=== PATIENT | female | born 1950 | race Caucasian/White ===

== ENCOUNTER → 2018-04-30 | Outpatient (CLI) | payer BC, MEDICARE, OTHER ==
[~2018-04-30] MED LIST: ? HTN MED; AMLO5 PO; GLIM4 PO; HYDCHL25 PO; METF500; METF500 PO; METO50; METO50ER PO; MULVITMINF PO; ONDA4ODT MM; SUMA25 PO; [UNRECOGNIZED DRUG - REMARK] PO
== END | disposition home or self-care (01) ==
LOC: LAB SHORT 17:44 → LAB 17:44
DX: E11.9 Type 2 diabetes mellitus without complications (principal); E78.5 Hyperlipidemia, unspecified; I10 Essential (primary) hypertension
CPT/HCPCS: 82043; 83036

== ENCOUNTER → 2019-08-19 | Outpatient (CLI) | payer MEDICARE, OTHER ==
[2019-08-19 14:19] LABS: CHOL/HDL RATIO 4.6; Cholesterol 167 mg/dL (50-200); HDL Cholesterol 36 mg/dL (>39); LDL/HDL RATIO 2.7; Low Density Lipoprotein Chol 99 mg/dL (0-110); Triglycerides 161 mg/dL (30-160); Very Low Density Lipoprot Chol 32 mg/dL (6-32)
== END | disposition home or self-care (01) ==
LOC: LAB 10:01 → LAB SHORT 10:01
PROVIDERS: Hospitalist
DX: E11.40 Type 2 diabetes mellitus with diabetic neuropathy, unspecified (principal)
CPT/HCPCS: 80061; 82043; 83036

== ENCOUNTER → 2020-11-10 | Outpatient (CLI) | payer MEDICARE, OTHER ==
[~2020-11-10] MED LIST changes: +Acetaminophen325 M1 PO; +IBUP400 PO; +INSULANPEN SC; +LISI5 PO; +LOSA25 PO; +SULTRIDS PO; +THERA-D2000 UNIT PO
== END | disposition home or self-care (01) ==
LOC: LAB SHORT 09:57
DX: L03.116 Cellulitis of left lower limb (principal)
CPT/HCPCS: 87070; 87075; 87205

== ENCOUNTER 2020-11-12 10:52 | Emergency (ER) | payer OTHER, MEDICARE ==
[~2020-11-12] VITALS: Ht 157.5 cm; Wt 80.7 kg
[~2020-11-12 10:52] MED LIST changes: -Acetaminophen325 M1 PO; -IBUP400 PO; -INSULANPEN SC; -LISI5 PO; -LOSA25 PO; -SULTRIDS PO; -THERA-D2000 UNIT PO
[2020-11-12 11:53] LABS: BASOPHILS ABSOLUTE AUTO 0.07 K/mm3 (0.00-0.23); BASOPHILS PERCENT AUTO 1 % (0-2); EOSINOPHILS PERCENT AUTO 2 % (0-6); Hematocrit 38.4 % (33.0-51.0); Hemoglobin 12.6 g/dL (11.5-16.0); IMMATURE GRAN ABSOLUTE AUTO 0.04 K/mm3 (0.00-0.10); IMMATURE GRAN PERCENT AUTO 1 % (0-1); LYMPHOCYTES ABSOLUTE AUTO 4.46 K/mm3 (0.84-5.20); LYMPHOCYTES PERCENT AUTO 53 % (21-46); MONOCYTES ABSOLUTE AUTO 0.44 K/mm3 (0.16-1.47); MONOCYTES PERCENT AUTO 5 % (4-13); Mean Corpuscular HGB 27.6 pg (26.0-34.0); Mean Corpuscular HGB Conc 32.8 g/dL (31.5-36.5); Mean Corpuscular Volume 84 fL (80-100); Mean Platelet Volume 9.1 fL (9.1-12.4); NEUTROPHILS ABSOLUTE AUTO 3.28 K/mm3 (1.96-9.15); NEUTROPHILS PERCENT AUTO 39 % (41-73); Platelet Count 266 K/mm3 (150-400); RDW Coefficient Variation 12.6 % (11.7-14.2); RDW Standard Deviation 38.2 fL (35.1-46.3); Red Blood Cell Count 4.57 M/mm3 (3.80-5.20); White Blood Cell Count 8.49 K/mm3 (4.00-11.30)
[2020-11-12 12:05] LABS: Alanine Aminotransfer (ALT/SGP 27 U/L (12-78); Albumin, Blood 3.4 g/dL (3.4-5.0); Albumin/Globulin Ratio 0.8 (0.8-1.8); Alk Phos 94 U/L (50-136); Anion Gap 9 mmol/L (6-16); Aspartate Aminotrans (AST/SGOT 18 U/L (12-37); Bilirubin, Total 0.3 mg/dL (0.1-1.0); Blood Urea Nitrogen 9 mg/dL (8-24); Bun/Creatinine Ratio 15.1 (12.0-20.0); CO2, Blood 21 mmol/L (21-32); Calcium, Blood 9.4 mg/dL (8.5-10.1); Chloride, Blood 104 mmol/L (98-108); Glomerular Filtration Rate >60 (60-); Glucose, Blood 248 mg/dL (70-99); Sodium, Blood 134 mmol/L (136-145); Total Protein, Blood 7.4 g/dL (6.4-8.2)
== END 2020-11-12 14:45 | disposition home or self-care (01) ==
LOC: ER 10:52
PROVIDERS: Emergency Medicine
DX: E11.628 Type 2 diabetes mellitus with other skin complications (principal); L02.612 Cutaneous abscess of left foot; E11.65 Type 2 diabetes mellitus with hyperglycemia; I10 Essential (primary) hypertension; Z79.84 Long term (current) use of oral hypoglycemic drugs
CPT/HCPCS: 73630; 76882; 80053; 85025; 85651; 86140; 96365; 96366; 99284-25; J3370

== ENCOUNTER → 2020-11-13 | Outpatient (CLI) | payer MEDICARE, OTHER ==
[~2020-11-13] MED LIST changes: +Acetaminophen325 M1 PO; +IBUP400 PO; +INSULANPEN SC; +LISI5 PO; +LOSA25 PO; +SULTRIDS PO; +THERA-D2000 UNIT PO
== END | disposition home or self-care (01) ==
LOC: LAB SHORT 14:25
DX: E11.621 Type 2 diabetes mellitus with foot ulcer (principal); L03.116 Cellulitis of left lower limb; L02.612 Cutaneous abscess of left foot; L97.509 Non-pressure chronic ulcer of other part of unspecified foot with unspecified severity
CPT/HCPCS: 87071; 87075; 87205

== ENCOUNTER 2021-01-04 18:16 | Inpatient (IN) | payer MEDICARE, OTHER ==
[~2021-01-04] VITALS: Ht 157.5 cm; Wt 79.8 kg
[~2021-01-04 18:16] MED LIST changes: -Acetaminophen325 M1 PO; -IBUP400 PO; -INSULANPEN SC; -LISI5 PO; -LOSA25 PO; -SULTRIDS PO; -THERA-D2000 UNIT PO
[2021-01-04 19:13] LABS: Hematocrit 40.8 % (33.0-51.0); Hemoglobin 13.7 g/dL (11.5-16.0); Mean Corpuscular HGB 27.9 pg (26.0-34.0); Mean Corpuscular HGB Conc 33.6 g/dL (31.5-36.5); Mean Corpuscular Volume 83 fL (80-100); Platelet Count 289 K/mm3 (150-400); RDW Coefficient Variation 12.9 % (11.7-14.2); RDW Standard Deviation 39.2 fL (35.1-46.3); Red Blood Cell Count 4.91 M/mm3 (3.80-5.20); White Blood Cell Count 9.81 K/mm3 (4.00-11.30)
[2021-01-04 19:33] LABS: Alanine Aminotransfer (ALT/SGP 25 U/L (12-78); Albumin/Globulin Ratio 0.9 (0.8-1.8); Alk Phos 122 U/L (50-136); Anion Gap 7 mmol/L (6-16); Aspartate Aminotrans (AST/SGOT 10 U/L (12-37); Bilirubin, Total 0.5 mg/dL (0.1-1.0); Blood Urea Nitrogen 13 mg/dL (8-24); Bun/Creatinine Ratio 21.9 (12.0-20.0); CO2, Blood 25 mmol/L (21-32); Calcium, Blood 10.1 mg/dL (8.5-10.1); Chloride, Blood 105 mmol/L (98-108); Creatinine, Blood 0.59 mg/dL (0.40-1.00); Globulin, Blood 4.3 g/dL (2.2-4.0); Glomerular Filtration Rate >60 (60-); Glucose, Blood 245 mg/dL (70-99); Potassium, Blood 3.9 mmol/L (3.5-5.5); Sodium, Blood 137 mmol/L (136-145); Total Protein, Blood 8.3 g/dL (6.4-8.2)
[2021-01-04 19:52] LABS: Influenza A, PCR NEGATIVE (NEGATIVE); Influenza B, PCR NEGATIVE (NEGATIVE); Resp Syncytial Virus, PCR NEGATIVE (NEGATIVE); SARS-Cov-2 (COVID-19) PCR, MMC NEGATIVE (NEGATIVE)
[2021-01-04 20:05] LABS: Source, Urine Clean Catch
[2021-01-04 20:23] LABS: Appearance, Urine Clear (Clear); Bilirubin, Urine Neg (Neg); Blood, Urine Neg (Neg); Color, Urine Yellow (P-Yellow); Glucose Qualitative, Urine 2+ (Neg); Ketones, Urine 2+ (Neg); Leukocyte Esterase, Urine 2+ (Neg); Nitrite, Urine Neg (Neg); Protein, Urine 1+ (Neg); Urobilinogen, Urine NORM (Normal)
[2021-01-04 20:34] LABS: Bacteria Few /hpf; Red Blood Cells, Urine 0-2 /hpf (0-2); Squamous Epithelial Cells Few /hpf (Few)
[2021-01-04 20:44] LABS: BASOPHILS PERCENT MAN 0 % (0-2); EOSINOPHILS ABSOLUTE MAN 0.19 K/mm3 (0.00-0.68); EOSINOPHILS PERCENT MAN 2 % (0-6); LYMPHOCYTES % ATYPICAL MANUAL 1 % (0-0); LYMPHOCYTES PERCENT MAN 49 % (21-46); MONOCYTES ABSOLUTE MAN 0.39 K/mm3 (0.16-1.47); MONOCYTES PERCENT MAN 4 % (4-13); NEUTROPHILS ABSOLUTE MAN 4.31 K/mm3 (1.96-9.15); SEG NEUTROPHILS PERCENT MAN 44 % (41-73); TOTAL CELLS COUNTED 100
[2021-01-04] MEDS ORDERED: SUMA25 PO (21:37)
[2021-01-04] MEDS ORDERED: LISI5 PO (21:39)
[2021-01-04] MEDS ORDERED: LOSA25 PO (23:00)
[2021-01-04] MEDS ORDERED: THERA-D2000 UNIT PO (23:01)
[2021-01-04] MEDS ORDERED: IBUP400 PO (23:01)
[2021-01-04] MEDS ORDERED: AMLO5 PO (23:03)
--- NOTE | 2021-01-05 00:01 | NUR ---
PT ARRIVED TO ROOM FROM ER. PT A/O, VSS. LEFT BALL OF FOOT OPEN, W/MOD AMT PURULANT TALAT HOUSER. PT REP PAIN AROUND WOUND AND UP INTO TOE. PT DENIES N/T, CAP REFILL WNL. PT REP SHE HAS HAD A WOUND VAC IN PLACE SINCE 11/12 AND HAS BEEN GOING TO THE WOUND CLINIC FOR DRESSING CHANGES. PT REP DR VERMA REFERRED HER TO HOSPITAL FOR PLAN FOR AMPUTATION OF LEFT GREAT TOE. PT REP PAIN FLORY AT REST. WOUND CLEANSED, PICS TAKEN AND PLACED IN CHART. WOUND DRESSED W/NON ADHEARANT DRESSING AND WRAPPED LOOSELY W/KERLEX. PT ORIENTED TO ROOM/CALL LIGHT/NPO STATUS. WILL MONITOR AND TX PER ORDERS.
[2021-01-05 05:30] LABS: BASOPHILS ABSOLUTE AUTO 0.06 K/mm3 (0.00-0.23); BASOPHILS PERCENT AUTO 1 % (0-2); EOSINOPHILS ABSOLUTE AUTO 0.26 K/mm3 (0.00-0.68); EOSINOPHILS PERCENT AUTO 3 % (0-6); Hemoglobin 11.7 g/dL (11.5-16.0); IMMATURE GRAN ABSOLUTE AUTO 0.03 K/mm3 (0.00-0.10); IMMATURE GRAN PERCENT AUTO 0 % (0-1); LYMPHOCYTES ABSOLUTE AUTO 4.54 K/mm3 (0.84-5.20); LYMPHOCYTES PERCENT AUTO 55 % (21-46); MONOCYTES ABSOLUTE AUTO 0.41 K/mm3 (0.16-1.47); MONOCYTES PERCENT AUTO 5 % (4-13); Mean Corpuscular HGB 27.6 pg (26.0-34.0); Mean Corpuscular HGB Conc 33.4 g/dL (31.5-36.5); Mean Corpuscular Volume 83 fL (80-100); Mean Platelet Volume 9.1 fL (9.1-12.4); NEUTROPHILS ABSOLUTE AUTO 2.94 K/mm3 (1.96-9.15); NEUTROPHILS PERCENT AUTO 36 % (41-73); Platelet Count 245 K/mm3 (150-400); RDW Coefficient Variation 12.8 % (11.7-14.2); RDW Standard Deviation 38.8 fL (35.1-46.3); Red Blood Cell Count 4.24 M/mm3 (3.80-5.20); White Blood Cell Count 8.24 K/mm3 (4.00-11.30)
[2021-01-05 06:18] LABS: Alanine Aminotransfer (ALT/SGP 20 U/L (12-78); Albumin, Blood 3.2 g/dL (3.4-5.0); Albumin/Globulin Ratio 0.8 (0.8-1.8); Alk Phos 97 U/L (50-136); Anion Gap 6 mmol/L (6-16); Aspartate Aminotrans (AST/SGOT 10 U/L (12-37); Bilirubin, Total 0.5 mg/dL (0.1-1.0); Blood Urea Nitrogen 10 mg/dL (8-24); Bun/Creatinine Ratio 16.9 (12.0-20.0); CO2, Blood 26 mmol/L (21-32); Calcium, Blood 9.3 mg/dL (8.5-10.1); Chloride, Blood 108 mmol/L (98-108); Creatinine, Blood 0.59 mg/dL (0.40-1.00); Globulin, Blood 3.8 g/dL (2.2-4.0); Glomerular Filtration Rate >60 (60-); Glucose, Blood 201 mg/dL (70-99); Potassium, Blood 3.5 mmol/L (3.5-5.5); Sodium, Blood 140 mmol/L (136-145)
--- NOTE | 2021-01-05 06:38 | NUR ---
PT NEW ADMIT FOR OSTEOMYELITIS OF LEFT FOOT. PT VSS SINCE ARRIVING TO FLOOR. PT DENIED PAIN. DRESSING TO LEFT FOOT INTACT, FOOT ELEVATED IN BED DURING NIGHT. PT NPO POST MIDNIGHT FOR POSSIBLE SURGERY TODAY. PT UP OOB W/FWW+SBA, FLORY WELL.
--- NOTE | 2021-01-05 09:25 | NUR ---
BROUGHT TO [facility] WITH RN. VSS ADMISSION STARTED AT THIS TIME. DRESSING ON LEFT FOOT
--- NOTE | 2021-01-05 09:45 | NUR ---
REPORT GIVEN TO GABY LAZO RN
--- NOTE | 2021-01-05 09:53 | NUR ---
assumed care and received report from vinay olivas rn. pt alert and oriented.
--- NOTE | 2021-01-05 12:27 | NUR ---
TYLENOL PATIENT C/O HEADACHE POST AMPUTATION OF L GREAT TOE. RECEIVED T.O. FROM DR. CHEN FOR TYLENOL. ORDER UPDATED.
--- NOTE | 2021-01-05 16:20 | NUR ---
Shift Summary A/Ox4, pleasant and cooperative with care. Patient had L great toe amputated this morning. Tolerated well. Patient received local anesthetics and propofol for sedation according to report received from [facility] RN. Up to bathroom x SBA, tolerating weight bearing to L leg. Affected extremity elevated above hip level, CMS intact. Dion wrap C/D/I. Patient is apprehensive about starting insulin, needs encouragement. Tolerated morning dose of lantus well stating "That wasn't so bad." No acute concerns. Britt CAPPS assuming care, report given.
--- NOTE | 2021-01-05 16:38 | NUR ---
REPORT RECEIVED FROM GÉNESIS QUINTANA. ASSUMED PT CARE AT THIS TIME
--- NOTE | 2021-01-05 19:47 | NUR ---
NO CHANGE SINCE RECEIVED REPORT, PT SITTING QUIETLY IN ROOM. SURGICAL SITE WNL, VSS. TYLENOL GIVEN PER EMAR FOR PAIN. REPORT PASSED TO GÉNESIS LOPEZ
--- NOTE | 2021-01-06 03:58 | NUR ---
SHIFT SUMMARY PT IS A/O X4, IND IN ROOM. S/P L GREAT TOE AMPUTATION WITH GAUZE AND ARIANE ON L FOOT. LEFT LEG ELEVATED ON PILLOWS OVERNIGHT. PT DECLINING ICE PACK. TAKING TYLENOL FOR PAIN; OFFERED FENTANYL PT REPORTING INCREASED PAIN, HOWEVER PT DECLINING FENTANYL SO FAR THIS SHIFT. PT IS TOLERATING PO INTAKE AND VOIDING. REPORTS BM 01/05. PT RESTING IN BED AT THIS TIME, CALL LIGHT IN REACH.
[2021-01-06] MEDS ORDERED: Acetaminophen325 M1 PO (13:56)
[2021-01-06] MEDS ORDERED: INSULANPEN SC (13:58)
[2021-01-06] MEDS ORDERED: SULTRIDS PO (13:59)
--- NOTE | 2021-01-06 15:57 | NUR ---
DISCHARGE SUMMARY PT A&OX4, VSS, LEFT FLOOR VIA WC WITH ALL PERSONAL POSSESSIONS TO GO HOME WITH DAUGHTER, WITH DC INSTRUCTIONS, SCRIPTS FAXED TO [facility]. DC INSTRUCTIONS PROVIDED, PT AND DAUGHTER REP UNDERSTANDING THOSE INSTRUCTIONS INCLUDING DR VERMA OFFICE WILL CALL PT TO SCHEDULE APPT FIRST OF WEEK AND LEAVE DRESSING IN PLACE UNTIL DR VERMA CHANGES IT AT APPT, WHEN TO CALL THE SURGEON; CALL PCP TO SCHEDULE APPT FOR NEXT WEEK. IV DC'D.
== END 2021-01-06 14:52 | disposition home or self-care (01) | DRG 617 ==
LOC: ER 18:16 → SURS 22:38 → ER 22:38 → SURS 22:42
PROVIDERS: Physician Assistant; Podiatrist; ADMIT Internal Medicine
PROC: 0Y6N0Z9 Detachment at Left Foot, Partial 1st Ray, Open Approach (ICD-10-PCS; principal; 2021-01-05 10:00)
DX: E11.69 Type 2 diabetes mellitus with other specified complication (principal); M86.172 Other acute osteomyelitis, left ankle and foot; L97.524 Non-pressure chronic ulcer of other part of left foot with necrosis of bone; E11.621 Type 2 diabetes mellitus with foot ulcer; Z20.822 Contact with and (suspected) exposure to COVID-19; Z79.84 Long term (current) use of oral hypoglycemic drugs; I10 Essential (primary) hypertension; R51.9 Headache, unspecified
CPT/HCPCS: 0241U; 36415; 80053; 81001; 82947; 83036; 85025; 85651; 87071; 87075; 87086; 87205; 88305; 88311; 93005; 93010; 99284; A9270; G0378; J0690; J1650; J2704; J3370; J7030; J7050; J7120

== ENCOUNTER → 2022-04-29 | Outpatient (CLI) | payer MEDICARE, OTHER ==
[~2022-04-29] MED LIST changes: +Acetaminophen325 M1 PO; +IBUP400 PO; +INSULANPEN SC; +LISI5 PO; +LOSA25 PO; +SULTRIDS PO; +THERA-D2000 UNIT PO
[2022-04-29 15:03] LABS: CHOL/HDL RATIO 4.8; Cholesterol 178 mg/dL (50-200); HDL Cholesterol 37 mg/dL (>39); LDL/HDL RATIO 2.8; Low Density Lipoprotein Chol 103 mg/dL (0-110); Triglycerides 191 mg/dL (30-160); Very Low Density Lipoprot Chol 38 mg/dL (6-32)
== END | disposition home or self-care (01) ==
LOC: LAB 13:40 → LAB SHORT 13:40
PROVIDERS: Hospitalist
DX: E78.5 Hyperlipidemia, unspecified (principal); E11.65 Type 2 diabetes mellitus with hyperglycemia
CPT/HCPCS: 80061; 82043; 83036

== ENCOUNTER → 2022-05-02 | Outpatient (CLI) | payer MEDICARE, OTHER | END | disposition home or self-care (01) | LOC: PLD 13:41 → LAB SHORT 13:41 | DX: L82.1 Other seborrheic keratosis (principal) | CPT/HCPCS: 88305 ==

== ENCOUNTER → 2022-10-02 | Outpatient (CLI) | payer MEDICARE, OTHER ==
[2022-10-02 18:35] LABS: Hematocrit 40.3 % (33.0-51.0); Hemoglobin 13.9 g/dL (11.5-16.0); Mean Corpuscular HGB 28.7 pg (26.0-34.0); Mean Corpuscular HGB Conc 34.5 g/dL (31.5-36.5); Mean Corpuscular Volume 83 fL (80-100); Mean Platelet Volume 9.6 fL (9.1-12.4); Platelet Count 275 K/mm3 (150-400); RDW Coefficient Variation 12.9 % (11.7-14.2); RDW Standard Deviation 38.7 fL (35.1-46.3); Red Blood Cell Count 4.85 M/mm3 (3.80-5.20); White Blood Cell Count 10.32 K/mm3 (4.00-11.30)
[2022-10-02 19:00] LABS: Albumin, Blood 3.9 g/dL (3.4-5.0); Albumin/Globulin Ratio 1.1 (0.8-1.8); Bilirubin, Total 0.4 mg/dL (0.1-1.0); Bun/Creatinine Ratio 23.1 (12.0-20.0); Calcium, Blood 9.7 mg/dL (8.5-10.1); Creatinine, Blood 0.52 mg/dL (0.40-1.00); Globulin, Blood 3.4 g/dL (2.2-4.0); Potassium, Blood 4.1 mmol/L (3.5-5.5); Thyroid Stimulating Hormone 2.4 uIU/mL (0.360-4.800); Total Protein, Blood 7.3 g/dL (6.4-8.2)
[2022-10-02 19:45] LABS: BASOPHILS PERCENT MAN 0 % (0-2); EOSINOPHILS PERCENT MAN 0 % (0-6); LYMPHOCYTES % ATYPICAL MANUAL 6 % (0-0); LYMPHOCYTES PERCENT MAN 57 % (21-46); MONOCYTES PERCENT MAN 2 % (4-13); NEUTROPHILS ABSOLUTE MAN 3.61 K/mm3 (1.96-9.15); SEG NEUTROPHILS PERCENT MAN 35 % (41-73); TOTAL CELLS COUNTED 100
== END | disposition home or self-care (01) ==
LOC: LAB 14:00 → LAB SHORT 14:00
PROVIDERS: Hospitalist
DX: R53.83 Other fatigue (principal)
CPT/HCPCS: 80053; 84443; 85025

== ENCOUNTER 2023-04-14 16:49 | Emergency (ER) | payer MEDICARE, OTHER ==
[~2023-04-14] VITALS: Ht 157.5 cm; Wt 90.7 kg
[2023-04-14 18:27] LABS: Hematocrit 40.5 % (33.0-51.0); Hemoglobin 13.6 g/dL (11.5-16.0); Mean Corpuscular HGB Conc 33.6 g/dL (31.5-36.5); Mean Corpuscular Volume 83 fL (80-100); Mean Platelet Volume 9.7 fL (9.1-12.4); Platelet Count 211 K/mm3 (150-400); RDW Coefficient Variation 13.2 % (11.7-14.2); RDW Standard Deviation 39.6 fL (35.1-46.3); Red Blood Cell Count 4.86 M/mm3 (3.80-5.20)
[2023-04-14 18:57] LABS: Albumin, Blood 3.7 g/dL (3.4-5.0); Albumin/Globulin Ratio 0.9 (0.8-1.8); Bilirubin, Total 0.3 mg/dL (0.1-1.0); Bun/Creatinine Ratio 24.3 (12.0-20.0); Calcium, Blood 9.1 mg/dL (8.5-10.1); Creatinine, Blood 0.58 mg/dL (0.40-1.00); Globulin, Blood 4.1 g/dL (2.2-4.0); Potassium, Blood 3.8 mmol/L (3.5-5.5); Total Protein, Blood 7.8 g/dL (6.4-8.2)
[2023-04-14 19:26] LABS: BASOPHILS PERCENT MAN 0 % (0-2); EOSINOPHILS PERCENT MAN 1 % (0-6); LYMPHOCYTES ABSOLUTE MAN 7.42 K/mm3 (0.84-5.20); LYMPHOCYTES PERCENT MAN 70 % (21-46); METAMYELOCYTE PERCENT MAN 1 % (0-0); MONOCYTES ABSOLUTE MAN 0.21 K/mm3 (0.16-1.47); MONOCYTES PERCENT MAN 2 % (4-13); NEUTROPHILS ABSOLUTE MAN 2.75 K/mm3 (1.96-9.15); SEG NEUTROPHILS PERCENT MAN 26 % (41-73); TOTAL CELLS COUNTED 100
[2023-04-14 20:38] VITALS: BP 143/81
== END 2023-04-14 20:37 | disposition home or self-care (01) ==
LOC: ER 16:49
PROVIDERS: Student in an Organized Health Care Education/Training Program
DX: R07.9 Chest pain, unspecified (principal); Z79.899 Other long term (current) drug therapy; Z79.4 Long term (current) use of insulin; E11.9 Type 2 diabetes mellitus without complications; I10 Essential (primary) hypertension
CPT/HCPCS: 71046; 80053; 84484; 85025; 93005; 93010; 99285-25

== ENCOUNTER → 2023-07-15 | Outpatient (CLI) | payer MEDICARE, OTHER ==
[2023-07-15 19:32] LABS: Creatinine, Urine Random 89.4 mg/dL (27.00-270.00)
[2023-07-15 19:34] LABS: Microalb/Creat Ratio UR, Rand 10.336 mg/g (0.000-30.000); Microalbumin, Random Urine 9.24 mg/L (0.000-20.000)
[2023-07-15 19:45] LABS: Bun/Creatinine Ratio 18.6 (12.0-20.0); Calcium, Blood 9.7 mg/dL (8.5-10.1); Creatinine, Blood 0.7 mg/dL (0.40-1.00); Potassium, Blood 4.2 mmol/L (3.5-5.5)
== END | disposition home or self-care (01) ==
LOC: LAB 14:06 → LAB SHORT 14:06
PROVIDERS: Hospitalist
DX: E11.51 Type 2 diabetes mellitus with diabetic peripheral angiopathy without gangrene (principal)
CPT/HCPCS: 80048; 82043; 82570

== ENCOUNTER 2024-06-16 22:13 | Inpatient (IN) | payer OTHER, MEDICARE ==
[~2024-06-16] VITALS: Ht 157.5 cm; Wt 67.8 kg
[2024-06-16] MEDS ORDERED: NS 1,000 ML IV SCH (22:35)
[2024-06-16 22:56] LABS: BASOPHILS ABSOLUTE AUTO 0.03 K/mm3 (0.00-0.23); BASOPHILS PERCENT AUTO 0 % (0-2); EOSINOPHILS PERCENT AUTO 0 % (0-6); Hematocrit 40.6 % (33.0-51.0); Hemoglobin 14.1 g/dL (11.5-16.0); IMMATURE GRAN ABSOLUTE AUTO 0.02 K/mm3 (0.00-0.10); IMMATURE GRAN PERCENT AUTO 0 % (0-1); LYMPHOCYTES ABSOLUTE AUTO 2.16 K/mm3 (0.84-5.20); LYMPHOCYTES PERCENT AUTO 29 % (21-46); MONOCYTES ABSOLUTE AUTO 0.17 K/mm3 (0.16-1.47); MONOCYTES PERCENT AUTO 2 % (4-13); Mean Corpuscular HGB 28.3 pg (26.0-34.0); Mean Corpuscular HGB Conc 34.7 g/dL (31.5-36.5); Mean Corpuscular Volume 81 fL (80-100); Mean Platelet Volume 9.2 fL (9.1-12.4); NEUTROPHILS ABSOLUTE AUTO 5.18 K/mm3 (1.96-9.15); NEUTROPHILS PERCENT AUTO 69 % (41-73); Platelet Count 168 K/mm3 (150-400); RDW Standard Deviation 38.5 fL (35.1-46.3); Red Blood Cell Count 4.99 M/mm3 (3.80-5.20); White Blood Cell Count 7.56 K/mm3 (4.00-11.30)
[2024-06-16 23:15] LABS: Albumin, Blood 3.4 g/dL (3.4-5.0); Albumin/Globulin Ratio 0.8 (0.8-1.8); Bilirubin, Total 1.1 mg/dL (0.1-1.0); Bun/Creatinine Ratio 18.5 (12.0-20.0); Calcium, Blood 9.2 mg/dL (8.5-10.1); Creatinine, Blood 0.65 mg/dL (0.40-1.00); Globulin, Blood 4.5 g/dL (2.2-4.0); Magnesium, Blood 1.8 mg/dL (1.6-2.4); Potassium, Blood 3.4 mmol/L (3.5-5.5); Total Protein, Blood 7.9 g/dL (6.4-8.2)
[2024-06-16 23:55] LABS: Influenza A, PCR NEGATIVE (NEGATIVE); Influenza B, PCR NEGATIVE (NEGATIVE); Resp Syncytial Virus, PCR NEGATIVE (NEGATIVE); SARS-Cov-2 (COVID-19) PCR, MMC NEGATIVE (NEGATIVE)
[2024-06-17] MEDS ORDERED: Azithromycin 500 MG in NS 250 ML IV ONE (00:10)
[2024-06-17] MEDS ORDERED: CefTRIAXone Sodium 1,000 MG in NS 100 ML IV ONE (00:10)
[2024-06-17 02:42] LABS: Source, Urine Clean Catch
[2024-06-17 02:45] LABS: Bilirubin, Urine Neg (Neg); Blood, Urine 3+ (Neg); Glucose Qualitative, Urine 2+ (Neg); Ketones, Urine 4+ (Neg); Leukocyte Esterase, Urine 2+ (Neg); Nitrite, Urine Pos (Neg); Protein, Urine 1+ (Neg); Urobilinogen, Urine 1+ (Normal)
[2024-06-17 03:17] LABS: Appearance, Urine Hazy (Clear); Color, Urine Yellow (P-Yellow)
[2024-06-17 03:18] LABS: Red Blood Cells, Urine 0-2 /hpf (0-2); Squamous Epithelial Cells Few /hpf (Few)
[2024-06-17 03:19] LABS: Bacteria Many /hpf
[2024-06-17] MEDS ORDERED: Acetaminophen 325 MG TABLET PO PRN (03:45)
[2024-06-17] MEDS ORDERED: NS 1,000 ML IV SCH ×2 (04:00→14:30)
[2024-06-17 05:33] VITALS: BP 151/71
[2024-06-17] MEDS ORDERED: Ondansetron HCl 2 MG / ML 2ML Vial IV PRN (05:40)
[2024-06-17] MEDS ORDERED: Acetaminophen 325 MG TABLET PO SCH (06:00)
--- NOTE | 2024-06-17 06:43 | NUR ---
SHIFT SUMMARY PT ARRIVED FROM ED AT ABOUT 0530. ORRIENTED TO ROOM. PT C/O PONCE AND HAD SLIGHT TEMPERATURE. TYLENOL GIVEN PER EMAR WITH GOOD EFFECT. NS INFUSING AT 125ML/HR. PT RESTING IN BED. BED IN LOWEST POSITION AND CALL LIGHT IN REACH.
[2024-06-17 07:30] VITALS: BP 147/57
[2024-06-17] MEDS ORDERED: Insulin Human Lispro 100 Units/ML 3ML Syringe SC SCH (07:30)
[2024-06-17] MEDS ORDERED: OZEMPIC2 MG/0.75 SC ×2 (07:54)
[2024-06-17 08:15] LABS: BASOPHILS ABSOLUTE AUTO 0.01 K/mm3 (0.00-0.23); BASOPHILS PERCENT AUTO 0 % (0-2); EOSINOPHILS PERCENT AUTO 0 % (0-6); Hematocrit 34.5 % (33.0-51.0); IMMATURE GRAN ABSOLUTE AUTO 0.02 K/mm3 (0.00-0.10); IMMATURE GRAN PERCENT AUTO 0 % (0-1); LYMPHOCYTES ABSOLUTE AUTO 2.35 K/mm3 (0.84-5.20); LYMPHOCYTES PERCENT AUTO 35 % (21-46); MONOCYTES ABSOLUTE AUTO 0.18 K/mm3 (0.16-1.47); MONOCYTES PERCENT AUTO 3 % (4-13); Mean Corpuscular HGB 28.3 pg (26.0-34.0); Mean Corpuscular HGB Conc 34.8 g/dL (31.5-36.5); Mean Corpuscular Volume 81 fL (80-100); NEUTROPHILS ABSOLUTE AUTO 4.11 K/mm3 (1.96-9.15); NEUTROPHILS PERCENT AUTO 62 % (41-73); Platelet Count 150 K/mm3 (150-400); RDW Coefficient Variation 13.1 % (11.7-14.2); RDW Standard Deviation 38.9 fL (35.1-46.3); Red Blood Cell Count 4.24 M/mm3 (3.80-5.20); White Blood Cell Count 6.67 K/mm3 (4.00-11.30)
[2024-06-17 08:35] LABS: Albumin, Blood 2.7 g/dL (3.4-5.0); Albumin/Globulin Ratio 0.7 (0.8-1.8); Bilirubin, Total 0.6 mg/dL (0.1-1.0); Bun/Creatinine Ratio 17.7 (12.0-20.0); Calcium, Blood 8.3 mg/dL (8.5-10.1); Creatinine, Blood 0.57 mg/dL (0.40-1.00); Globulin, Blood 3.9 g/dL (2.2-4.0); Potassium, Blood 3.2 mmol/L (3.5-5.5); Total Protein, Blood 6.6 g/dL (6.4-8.2)
[2024-06-17] MEDS ORDERED: Losartan Potassium 25 MG Tab PO SCH (09:00)
[2024-06-17] MEDS ORDERED: Enoxaparin 40 MG/0.4 ML SYR SC SCH (09:00)
[2024-06-17] MEDS ORDERED: Insulin Glargine-Yfgn 100 Unit/mL 3 ML SYR SC SCH ×3 (09:00→21:00)
[2024-06-17] MEDS ORDERED: Lactobacil 2-S.Thermo-Bifido 1 1 Cap PO SCH (09:00)
[2024-06-17] MEDS ORDERED: AmLODIPine Besylate 5 MG Tab PO SCH (09:00)
[2024-06-17] MEDS ORDERED: Losartan Potassium 50 MG Tab PO SCH (09:00)
[2024-06-17] MEDS ORDERED: Cholecalciferol 1000 Unit Tablet (=25MCG) PO SCH (09:00)
[2024-06-17] MEDS ORDERED: HydrALAZINE HCl 20 MG / ML 1ML Vial IV PRN (14:05)
[2024-06-17] MEDS ORDERED: Potassium Chloride 20 MEQ TabCR PO ONE (14:05)
--- NOTE | 2024-06-17 16:20 | NUR ---
SUMMARY NO ACUTE CHANGES, PT WAS R/A SAT 91% BUT HAD TO PLACE BACK ON 2L DUE TO DESAT 84% WHILE SLEEPING, PRODUCTIVE COUGH. FAMILY HAS BEEN AT BEDSIDE ASSISTING WITH PT CARE AND NEEDS. PT BLOOD SUGAR WNL. PT USES OZEMPIC AND TYLENOL ONLY. MED REC UPDATED AND PROVIDER AWARE. PRN FOR HTN ADDED DUE TO PT NOT WANTING TO TAKE SCHEDULED MEDS. PT STATES THAT SHE HAS BEEN OFF OF MEDICATION SINCE NOV 2023. PT IS ALERT AND ORIENTED X4, ABLE TO MAKE NEEDS KNOWN. SBA WITH FWW.
[2024-06-17 18:24] VITALS: BP 151/79
[2024-06-17 19:22] VITALS: BP 172/68
[2024-06-17] MEDS ORDERED: NS 250 ML IV PRN (20:50)
[2024-06-17] MEDS ORDERED: CefTRIAXone Sodium 1,000 MG in NS 100 ML IV SCH (21:00)
[2024-06-17 21:17] VITALS: BP 135/60
[2024-06-18 02:54] VITALS: BP 144/63
[2024-06-18 05:51] LABS: Bun/Creatinine Ratio 14.2 (12.0-20.0); Calcium, Blood 8.3 mg/dL (8.5-10.1); Creatinine, Blood 0.56 mg/dL (0.40-1.00); Potassium, Blood 3.4 mmol/L (3.5-5.5)
[2024-06-18] MEDS ORDERED: Azithromycin 500 MG in NS 250 ML IV SCH (06:00)
[2024-06-18 06:39] LABS: BASOPHILS ABSOLUTE AUTO 0.01 K/mm3 (0.00-0.23); BASOPHILS PERCENT AUTO 0 % (0-2); EOSINOPHILS ABSOLUTE AUTO 0.02 K/mm3 (0.00-0.68); EOSINOPHILS PERCENT AUTO 0 % (0-6); Hematocrit 33.2 % (33.0-51.0); Hemoglobin 11.6 g/dL (11.5-16.0); IMMATURE GRAN ABSOLUTE AUTO 0.03 K/mm3 (0.00-0.10); IMMATURE GRAN PERCENT AUTO 1 % (0-1); LYMPHOCYTES ABSOLUTE AUTO 2.58 K/mm3 (0.84-5.20); LYMPHOCYTES PERCENT AUTO 40 % (21-46); MONOCYTES ABSOLUTE AUTO 0.21 K/mm3 (0.16-1.47); MONOCYTES PERCENT AUTO 3 % (4-13); Mean Corpuscular HGB 28.4 pg (26.0-34.0); Mean Corpuscular HGB Conc 34.9 g/dL (31.5-36.5); Mean Corpuscular Volume 81 fL (80-100); NEUTROPHILS PERCENT AUTO 56 % (41-73); Platelet Count 140 K/mm3 (150-400); RDW Coefficient Variation 13.3 % (11.7-14.2); RDW Standard Deviation 39.7 fL (35.1-46.3); Red Blood Cell Count 4.08 M/mm3 (3.80-5.20); White Blood Cell Count 6.45 K/mm3 (4.00-11.30)
--- NOTE | 2024-06-18 06:50 | NUR ---
SHIFT SUMMARY PT A&Ox4. PT SOMNOLENT AND ILL LOOKING AT START OF SHIFT. BP ELEVATED AT 172/68, HYDRALAZIN GIVEN AND BP DECREASED TO 135/60. PT ALSO HAD ORAL TEMP OF 100.5 AND C/O HEADACHE. TYLENOL GIVEN PER EMAR WITH GOOD EFFECT. ONE TIME BAG OF NS COMPLETED. IV ABX GIVEN PER EMAR. NO INSULIN COVERAGE NEEDED. BED IN LOWEST POSITION AND CALL LIGHT IN REACH.
[2024-06-18 07:34] VITALS: BP 140/74
[2024-06-18] MEDS ORDERED: Potassium Chloride 20 MEQ TabCR PO ONE (07:45)
[2024-06-18] MEDS ORDERED: LOSA25 PO (11:35)
[2024-06-18] MEDS ORDERED: VISBIOME 112.51 EACH PO ×2 (11:35)
[2024-06-18] MEDS ORDERED: AMOCLA875 PO ×2 (11:36)
--- NOTE | 2024-06-18 13:22 | NUR ---
PATIENT DISCHARGE: PATIENT DISCHARGED TO HOME THIS SHIFT. MEDICATION RECONCILIATION COMPLETED; MED LIST FAXED TO [facility]. DISCHARGE EDUCATION PROVIDED TO PATIENT. PATIENT TRANSPORTED TO EXIT BY FAMILY WITH WHEELCHAIR AT 1317. PATIENT DEPARTED [facility] VIA PRIVATE AUTO.
== END 2024-06-18 13:19 | disposition home or self-care (01) | DRG 871 ==
LOC: ER 22:13 → MEDS 06-17 03:43 → ENPENDDIS 06-18 09:41 → MEDS 06-18 13:19
PROVIDERS: Emergency Medicine; Family Medicine; ADMIT Internal Medicine
DX: A41.9 Sepsis, unspecified organism (principal); J18.9 Pneumonia, unspecified organism; J96.01 Acute respiratory failure with hypoxia; E87.1 Hypo-osmolality and hyponatremia; E87.6 Hypokalemia; I10 Essential (primary) hypertension; E11.9 Type 2 diabetes mellitus without complications; R65.20 Severe sepsis without septic shock; D69.6 Thrombocytopenia, unspecified; B96.20 Unspecified Escherichia coli [E. coli] as the cause of diseases classified elsewhere; W01.0XXA Fall on same level from slipping, tripping and stumbling without subsequent striking against object, initial encounter; Z79.899 Other long term (current) drug therapy; Z79.84 Long term (current) use of oral hypoglycemic drugs; Z79.4 Long term (current) use of insulin; Z90.49 Acquired absence of other specified parts of digestive tract; Z98.890 Other specified postprocedural states; Z90.710 Acquired absence of both cervix and uterus; Z89.412 Acquired absence of left great toe
CPT/HCPCS: 0241U; 36415; 70450; 71045; 72125; 80048; 80053; 81001; 82947; 83605; 83735; 84484; 85025; 87040; 87077; 87086; 87186; 93005; 93010; 94760; 94761; 96361; 96365; 96367; 97110; 97161; 97530; 99285-25; A9270; J0360; J0456; J0696; J1650; J1815; J7030; J7050

== ENCOUNTER → 2024-06-22 | Outpatient (CLI) | payer MEDICARE, OTHER ==
[~2024-06-22] MED LIST changes: +AMOCLA875 PO; +OZEMPIC2 MG/0.75 SC; +VISBIOME 112.51 EACH PO
[2024-06-22 14:52] LABS: Bun/Creatinine Ratio 13.4 (12.0-20.0); Calcium, Blood 9.4 mg/dL (8.5-10.1); Creatinine, Blood 0.52 mg/dL (0.40-1.00); Potassium, Blood 3.4 mmol/L (3.5-5.5)
== END | disposition home or self-care (01) ==
LOC: LAB SHORT 13:35
PROVIDERS: Hospitalist
DX: E87.6 Hypokalemia (principal); E87.1 Hypo-osmolality and hyponatremia
CPT/HCPCS: 80048

== ENCOUNTER 2024-07-23 06:07 | Day surgery (SDC) | payer MEDICARE, OTHER ==
[~2024-07-23] VITALS: Ht 157.5 cm; Wt 69.7 kg
[2024-07-23] VITALS (18 sets, daily range): BP systolic 131–200; BP diastolic 68–105
[2024-07-23] MEDS ORDERED: Lactated Ringer's 1,000 ML IV SCH ×2 (06:20→08:35)
--- NOTE | 2024-07-23 06:45 | NUR ---
Ambulatory in Day Surgery History, Chart, Medications and Allergies reviewed before start of procedure.Lungs clear T/O to Auscultation. Patient confirms NPO status and agrees with scheduled surgery. Patient reports completing Chlorhexadine shower X2 prior to admission to hospital.Patient States Post-Procedure ride home has been arranged.
[2024-07-23] MEDS ORDERED: Bupivacaine 0.5% HCl 5 MG/ML 30MLVIAL ONE (07:10)
[2024-07-23] MEDS ORDERED: EpiNEPhrine 1 MG/1 ML 1ML Vial ONE (07:10)
[2024-07-23] MEDS ORDERED: Estradiol Vag Cream 0.1 MG/G 42.5 GM Tube VAG ONE (07:20)
[2024-07-23] MEDS ORDERED: propofoL 20 ML IV ONE (07:22)
[2024-07-23] MEDS ORDERED: FentaNYL Citrate 50 MCG/ML 2 ML Injection ONE (07:22)
[2024-07-23] MEDS ORDERED: Lidocaine HCl 2% 20 ML MDV ONE (07:23)
[2024-07-23] MEDS ORDERED: Rocuronium Bromide 10 MG/ML 5ML Injection IV ONE (07:23)
[2024-07-23] MEDS ORDERED: Glycopyrrolate 0.2 MG/ML 5ML VIAL ONE (07:51)
--- NOTE | 2024-07-23 07:59 | NUR ---
07/23/24 0759 Ilda Banda NO PREOP ANTIBIOTICS ORDERED PER .
[2024-07-23] MEDS ORDERED: Sugammadex Sodium 200 MG/2ML SDV (100 MG/ML) ONE (08:10)
[2024-07-23] MEDS ORDERED: Ondansetron HCl 2 MG / ML 2ML Vial ONE (08:10)
[2024-07-23] MEDS ORDERED: DiphenhydrAMINE HCL 25 MG Cap PO PRN (08:35)
[2024-07-23] MEDS ORDERED: HYDROcodone 10-APAP 325 TAB PO PRN (08:35)
[2024-07-23] MEDS ORDERED: Ondansetron HCl 2 MG / ML 2ML Vial IV PRN (08:35)
[2024-07-23] MEDS ORDERED: Ibuprofen 400 MG Tab PO PRN (08:35)
[2024-07-23] MEDS ORDERED: FentaNYL Citrate 50 MCG/ML 2 ML Injection IV PRN (08:35)
[2024-07-23] MEDS ORDERED: Acetaminophen 325 MG TABLET PO PRN (08:40)
[2024-07-23] MEDS ORDERED: Ketorolac Tromethamine 30mg Vial ONE (08:50)
[2024-07-23] MEDS ORDERED: HydrALAZINE HCl 20 MG / ML 1ML Vial ONE (08:56)
[2024-07-23] MEDS ORDERED: Ketorolac Tromethamine 30mg Vial IV SCH (12:00)
[2024-07-23 12:08] LABS: Hematocrit 39.6 % (33.0-51.0); Hemoglobin 13.4 g/dL (11.5-16.0); Mean Corpuscular HGB 28.5 pg (26.0-34.0); Mean Corpuscular HGB Conc 33.8 g/dL (31.5-36.5); Mean Corpuscular Volume 84 fL (80-100); Mean Platelet Volume 8.9 fL (9.1-12.4); Platelet Count 176 K/mm3 (150-400); RDW Coefficient Variation 14.1 % (11.7-14.2); RDW Standard Deviation 43.4 fL (35.1-46.3); White Blood Cell Count 10.15 K/mm3 (4.00-11.30)
[2024-07-23 13:13] LABS: BASOPHILS PERCENT MAN 0 % (0-2); EOSINOPHILS PERCENT MAN 0 % (0-6); LYMPHOCYTES PERCENT MAN 67 % (21-46); MONOCYTES PERCENT MAN 0 % (4-13); NEUTROPHILS ABSOLUTE MAN 3.34 K/mm3 (1.96-9.15); SEG NEUTROPHILS PERCENT MAN 33 % (41-73); TOTAL CELLS COUNTED 100
[2024-07-23] MEDS ORDERED: Percocet 5-3251 EACH PO (16:52)
[2024-07-23] MEDS ORDERED: IBU800 MG PO (16:52)
--- NOTE | 2024-07-23 18:39 | NUR ---
DISCHARGE: PT ABLE TO AMBULATE, PAIN MANAGED. VOIDING AND SCANT VAGINAL BLEED AFTER PACKING REMOVED. PER ORDERS PT ABLE TO DC. DC PACKET PRINTED AND PT EDUCATED. PT GIVEN PAIN SCRIPT. PT LEFT UNIT WITH DAUGHTER VIA WHEELCHAIR AT ABOUT 1700
== END 2024-07-23 17:22 | disposition home or self-care (01) ==
LOC: ORSCMMR 06:07 → ORD 07:30 → ORSCMMR 09:04 → SURS 09:04 → ORSCMMR 17:22 → SURS 17:22
PROVIDERS: Obstetrics & Gynecology
PROC: 0JQC0ZZ Repair Pelvic Region Subcutaneous Tissue and Fascia, Open Approach (ICD-10-PCS; principal; 2024-07-23 07:30)
DX: N81.11 Cystocele, midline (principal); N95.2 Postmenopausal atrophic vaginitis; I10 Essential (primary) hypertension; E11.9 Type 2 diabetes mellitus without complications; Z79.85 Long-term (current) use of injectable non-insulin antidiabetic drugs
CPT/HCPCS: 36415; 82947; 85025; A9270; J0171; J0360; J1885; J2405; J2704; J3010; J7120

== ENCOUNTER → 2025-02-02 | Outpatient (CLI) | payer MEDICARE, OTHER ==
[~2025-02-02] MED LIST changes: +IBU800 MG PO; +Percocet 5-3251 EACH PO
[2025-02-02 14:26] LABS: Bun/Creatinine Ratio 20.4 (12.0-20.0); Calcium, Blood 9.3 mg/dL (8.5-10.1); Creatinine, Blood 0.74 mg/dL (0.40-1.00)
[2025-02-02 14:42] LABS: Microalb/Creat Ratio UR, Rand 50.726 mg/g (0.000-30.000); Microalbumin, Random Urine 62.9 mg/L (0.000-20.000)
== END ==
LOC: LAB SHORT 08:45 → LAB 08:45
PROVIDERS: Hospitalist
DX: E11.51 Type 2 diabetes mellitus with diabetic peripheral angiopathy without gangrene (principal)
CPT/HCPCS: 80048; 82043; 82570